=== PATIENT | female | born 1970 | race Caucasian/White ===

== ENCOUNTER → 2017-02-28 | Outpatient (CLI) | payer BC ==
[~2017-02-28] MED LIST: CALCTAB5 PO; GLCSUNK PO
== END | disposition home or self-care (01) ==
LOC: C.RDSM 14:01
PROVIDERS: ATTEND Family Medicine Sports Medicine
DX: M79.671 Pain in right foot (principal)

== ENCOUNTER → 2017-06-19 | Outpatient (CLI) | payer BC ==
--- NOTE | 2017-06-20 13:58 | MAMMOGRAPHY REPORT ---
BILATERAL DIGITAL SCREENING MAMMOGRAM TOMOSYNTHESIS WITH CAD: 06/19/2017 CLINICAL HISTORY: Routine screening. Patient has no complaints. TECHNIQUE: Breast tomosynthesis in addition to standard 2D mammography was performed. Current study was also evaluated with a Computer Aided Detection (CAD) system. COMPARISON: Comparison is made to exams dated: 06/17/2016 mammogram, 06/29/2015 mammogram, 06/15/2015 brian mogram, 06/09/2014 mammogram, 06/02/2013 mammogram, and 06/29/2015 ultrasound - [facility] nter. BREAST COMPOSITION: The tissue of both breasts is heterogeneously dense, which may obscure small mas ses. FINDINGS: No suspicious masses, calcifications, or areas of architectural distortion are noted in ei ther breast. There has been no significant interval change compared to prior exams. IMPRESSION: ACR BI-RADS CATEGORY 1: NEGATIVE There is no mammographic evidence of malignancy. A 1 year screening mammogram is recommended. The pa tient will receive written notification of the results. Approximately 10% of breast cancers are not detected with mammography. A negative mammographic report should not delay biopsy if a clinically suggestive mass is present. Rosi Medina M.D. ah/:06/19/2017 16:16:18 Warp Knitter Helper: Irma AMAYA(Babita)(M), [facility] letter sent: Normal 1/2 BI-RADS Code: ACR BI-RADS Category 1: Negative
== END | disposition home or self-care (01) ==
LOC: C.MAMM 10:35
PROVIDERS: ATTEND Family Medicine
DX: Z12.31 Encounter for screening mammogram for malignant neoplasm of breast (principal)

== ENCOUNTER → 2018-06-12 | Outpatient (CLI) | payer BC | END | disposition home or self-care (01) | LOC: C.RDSM 09:15 | PROVIDERS: ATTEND Family Medicine Sports Medicine | DX: M54.5 Low back pain (principal); M70.62 Trochanteric bursitis, left hip; M54.10 Radiculopathy, site unspecified ==

== ENCOUNTER → 2018-06-22 | Outpatient (CLI) | payer BC ==
--- NOTE | 2018-06-23 14:58 | MAMMOGRAPHY REPORT ---
BILATERAL DIGITAL SCREENING MAMMOGRAM TOMOSYNTHESIS WITH CAD: 06/22/2018 CLINICAL HISTORY: Routine screening. Patient has no complaints. TECHNIQUE: The study was acquired using full field digital technology and interpreted from soft copy. Breast tomosynthesis in addition to standard 2D mammography was performed. Current study was also ev aluated with a Computer Aided Detection (CAD) system. COMPARISON: Comparison is made to exams dated: 06/19/2017 mammogram, 06/17/2016 mammogram, 06/29/2015 ma mmogram, 06/15/2015 mammogram, 06/09/2014 mammogram, and 06/02/2013 mammogram - [facility] ter. BREAST COMPOSITION: The tissue of both breasts is heterogeneously dense, which may obscure small mass es. FINDINGS: There is fluctuating nodularity bilaterally, most likely representing fluctuating cysts. S cattered and grouped faint punctate and amorphous microcalcifications are also stable. No suspicious spiculated or irregular mass, architectural distortion or cluster of new, suspicious microcalcificati ons is seen. IMPRESSION: ACR BI-RADS CATEGORY 1: NEGATIVE There is no mammographic evidence of malignancy. A 1 year screening mammogram is recommended.( 019) The patient will receive written notification of the results. Some breast cancers are not detected with mammography. A negative mammographic report should not mayte y biopsy if a clinically suggestive mass is present. Kenyetta Lopez M.D. ay/:06/22/2018 16:19:08 Scaler Packer: RT Victor Manuel(Babita)(Javan), [facility] letter sent: Normal 1/2 BI-RADS Code: ACR BI-RADS Category 1: Negative
== END | disposition home or self-care (01) ==
LOC: C.MAMM 10:30
PROVIDERS: ATTEND Family Medicine
DX: Z12.31 Encounter for screening mammogram for malignant neoplasm of breast (principal)

== ENCOUNTER → 2018-06-26 | Outpatient (CLI) | payer BC ==
--- NOTE | 2018-06-26 10:41 | DIAGNOSTIC IMAGING REPORT ---
LUMBAR SPINE W/O CONTRAST HISTORY: Pain. Neuropathy. LOW BACK PAIN TECHNIQUE: Multiplanar multisequence MRI of the lumbar spine was performed without the use of contrast. COMPARISON: None. FINDINGS: For the purpose of the report the L5-S1 disc space will be located on axial image 2425. Signal characteristics of the vertebral bodies are unremarkable. Degenerative disc change most significant at L5-S1 and seen to a lesser extent throughout the remainder of the lumbar region. Posterior extra dural defects are identified at L4-L5 and L5-S1. L1-L2: No significant central canal or neural foraminal narrowing. L2-L3: No significant central canal or neural foraminal narrowing. L3-L4: Mild broad-based disc bulge. Minimal impact anterior thecal sac. L4-L5: Broad-based posterior disc herniation. Significant impact upon the right anterior as well as left anterior aspect of thecal sac. Moderate multifactorial narrowing of spinal canal. Mild narrowing of the neuroforamina bilaterally. L5-S1: Mild central disc herniation. Mild impact anterior aspect of the thecal sac. Mild narrowing left neuroforamina. Contact with no significant deformity or displacement of the S1 nerve roots. Right neuroforamina is patent. IMPRESSION: 1. Broad-based posterior disc herniation L4-L5. Focal deformities of the anterior aspect of the thecal sac with mild narrowing of the neuroforamina bilaterally. 2. Mild central disc herniation L5-S1 with mild narrowing of the left neuroforamina. The above report was generated using voice recognition software. It may contain grammatical, syntax or spelling errors. Electronically signed by: Lucius Antoine M.D. 06/26/2018 10:40 AM Dictated Date/Time: 06/26/2018 10:31 AM
== END | disposition home or self-care (01) ==
LOC: C.MRI 09:32
PROVIDERS: ATTEND Family Medicine Sports Medicine
DX: M51.16 Intervertebral disc disorders with radiculopathy, lumbar region (principal); M54.5 Low back pain; M70.62 Trochanteric bursitis, left hip